=== PATIENT | male | born 1995 | race American Indian/Alaskan Native ===

== ENCOUNTER 2021-04-29 09:59 | Day surgery (SDC) | payer BC, OTHER ==
[2021-04-29] MEDS ORDERED: BUPIVACAINE/PF (0.5%) 5 MG/1 ML 30 ML VIAL INFILTRATI ONE ×2 (12:05→12:23)
[2021-04-29] MEDS ORDERED: LIDOCAINE (1%) 10 MG/1 ML VIAL 20 ML MDV ONE (12:05)
[2021-04-29] MEDS ORDERED: LIDOCAINE (1%) 10 MG/1 ML VIAL 20 ML MDV INFILTRATI ONE (12:24)
[2021-04-29 12:54] VITALS: BP 143/78
--- NOTE | 2021-04-29 13:28 | Procedure Note ---
Date of procedure: 04/29/21 Pre-op diagnosis: mass of left wrist Post-op diagnosis: same Procedure: excision Findings: Patient was placed in supine position. The left hand was prepped and draped in usual sterile fashion and a timeout performed. Local anesthetic was infiltrated into the skin at the intended incision site. The cyst measured less than 1 cm and was only visible when the patient performed extreme flexion at his wrist. The patient's wrist was flexed and a 1 cm transverse incision made over the area of the palpable mass. Dissection was carried down through skin subcutaneous tissue using electrocautery. The subcutaneous tissue was dissected using a mosquito clamp. A small amount of fatty tissue was removed from the wound. Tissue that appeared to be cyst wall was dissected and excised using electrocautery. This was passed off the table as a specimen. It measured 0.2 cm. The wound was explored further and no cystlike structure was identified. Therefore the wound was irrigated and hemostasis ensured. The wound was closed with one deep 3-0 Vicryl stitch. The skin was approximated using a 4-0 Monocryl subcuticular stitch and skin glue. At the end of the case all sponge, instrument, sharp counts were correct x2. The patient tolerated the procedure well and was discharged home in stable condition. Anesthesia: local Surgeon: SAÚL CENTENO Estimated blood loss: minimal Pathology: list (mass left wrist) Specimen disposition: to lab Condition: stable Disposition: other (HOME)
== END 2021-04-29 10:00 | disposition home or self-care (01) ==
LOC: OR 09:59
PROVIDERS: ATTEND Surgery
DX: R22.32 Localized swelling, mass and lump, left upper limb (principal); M67.442 Ganglion, left hand; Z79.899 Other long term (current) drug therapy; Z98.890 Other specified postprocedural states
CPT/HCPCS: 26160; 88304; 88307; J3490